=== PATIENT | female | born 1990 | race Caucasian/White ===

== ENCOUNTER → 2024-01-02 13:32 | Outpatient (REF) | payer BC, SELFPAY | LOC: CPAP 13:32 | PROVIDERS: ATTENDING PHYSICIAN Obstetrics & Gynecology | DX: Z12.4 Encounter for screening for malignant neoplasm of cervix (principal); Z11.51 Encounter for screening for human papillomavirus (HPV); Z01.419 Encounter for gynecological examination (general) (routine) without abnormal findings | CPT/HCPCS: 87624; G0123 ==

== ENCOUNTER → 2024-03-07 18:48 | Outpatient (REF) | payer BC, SELFPAY | LOC: CLAB 18:48 | PROVIDERS: ATTENDING PHYSICIAN Physician Assistant Medical | DX: A69.20 Lyme disease, unspecified (principal) | CPT/HCPCS: 36415; 86618 ==